=== PATIENT | male | born 1960 | race Caucasian/White ===

== ENCOUNTER 2016-11-24 15:28 | Emergency (ER) ==
[2016-11-24] MEDS ORDERED: XYLOCAINE 1% INJ ONE (17:31)
--- NOTE | 2016-11-24 17:44 | PROVIDER DOCUMENTATION ---
HPI-Rash/Wound/ReCheck - General Chief Complaint: Abscess Stated Complaint: FINGER INFECTION Time Seen by Provider: 11/24/16 17:17 - History of Present Illness-Dermatology Nature of Presenting Problem: Pt works at the [employer] and drained his abscess with a needle several days ago and has been taking amoxicillin since. he had one of these finger abscesses in the past Review of Systems - Adult - REVIEW OF SYSTEMS - ADULT Constitutional: denies: chills, fever Eyes: denies: discharge, blurred vision, redness Ears, Nose, Mouth & Throat: denies: ear pain, nose pain Cardiovascular: denies: edema, irregular heart rate, poor circulation Respiratory: denies: chronic cough, cough, hemoptysis Gastrointestinal: denies: abdominal pain, constipation, diarrhea, nausea, vomiting Genitourinary: denies: dysuria, hematuria Integumentary: reports: other (finger abscess) Neurological: denies: ataxia, numbness, tremors Psychiatric: denies: anxiety, emotional problems Endocrine: denies: goiter, cold intolerance, heat intolerance Hematologic/Lymphatic: denies: low blood count, lymphedema Allergic/Immunologic: denies: eczema, frequent infections, hives (4x4 cm) Past History - Adult - PAST MEDICAL HISTORY-ADULT Review of Records: reports: Nursing Assessment Review, Medications Reviewed Physical Exam-General - PHYSICAL EXAM-ADULT Initial Vital Signs Reviewed: Yes - CONSTITUTIONAL General Appearance: appears well, alert, no apparent distress - EYES Eyes: PERRL/EOMI, pink conjunctivae, fundi clear, no AV nicking - HEAD, EARS, NOSE, MOUTH & THROAT HENMT: normocephalic/atraumatic, moist mucous membranes, normal ENT inspection - NECK Neck: non-tender, full range of motion, supple, normal inspection - RESPIRATORY Respiratory: chest non-tender, lungs clear, normal breath sounds, no pleuratic chest pain, no respiratory distress, no accessory muscle use - CARDIOVASCULAR Cardiovascular: normal peripheral pulses, regular rate, rhythm, no edema, no gallop, no JVD - CHEST (BREASTS) Chest/Breast: no tenderness - GASTROINTESTINAL (ABDOMEN) Abdominal Exam: normal bowel sounds, non tender, soft, no organomegaly, no pulsatile mass - LYMPHATIC Lymphatic: no adenopathy - MUSCULOSKELETAL Back Exam: normal inspection, no CVA tenderness, no vertebral tenderness Extremity: normal range of motion, non-tender, erythema, inflammation, other ( whole little finger is red) Departure - Departure Time of Disposition Order: 17:[id number] DIAGNOSIS: Cellulitis and abscess of hand Disposition: HOME 01 Certified Medical Emergency: Emergent Condition: Stable Additional Instructions: remove the bandage after 24 hours and then treat the open wound with hydrogen peroxide to keep open. Use both antibiotics ED Follow Up Instructions: You have been treated by a care provider in the Emergency Department. These instructions are being provided to you so you can have an understanding of how to care for yourself upon discharge. Upon discharge from the Emergency Department, you are responsible for making arrangements for follow-up care by a physician of your choice. Take all prescribed medications as directed. Return to the Emergency Department immediately for any new or worsening symptoms. You may call the Physician Referral phone number at [phone] to obtain a list of Physicians who are taking new patients. Prescriptions: Sulfamethoxazole/Trimethoprim [Bactrim Ds Tablet] 1 each PO BID #20 tablet Cephalexin [Keflex] 500 mg PO 4XDAY #40 capsule
[2016-11-24 18:28] VITALS: BP 162/95
== END 2016-11-24 18:12 | disposition home or self-care (01) ==
LOC: ED 15:28
DX: L03.011 Cellulitis of right finger (principal); L53.9 Erythematous condition, unspecified
CPT/HCPCS: 87070; 87077